=== PATIENT | female | born 1985 | race Caucasian/White ===

== ENCOUNTER 2017-09-21 11:14 | Inpatient (IN) | payer MEDICAID ==
[~2017-09-21] VITALS: Ht 152.4 cm; Wt 43.7 kg
[~2017-09-21 11:14] MED LIST: ABILIFY15 M1 PO; ABILIFY20 M1 PO; ABILIFY5 M1 PO; AMLODIPINE BES2.5 M1 PO; ATENOLOL25 MG PO; BACO TOP; BENZTROPINE MESY2 MG PO; BENZTROPINE PO; CHLORPROMAZINE25 M1 PO; CIPRO250 MG PO; CIPRO500 MG PO; CITRATE OF1.75 GM/30 PO; COL250 PO; DIPHENHYDRAMINE50 M2 PO; DIPHENHYDRAMINE50 MG PO; DOCUSATE; DOK COLACE100 MG PO; ENSURE1 PDR PO; ERY250 PO; EUCERIN ORIGIN250 ML TOP; HALDOL; HALOPERIDOL10 MG PO; HIB240 TP; HIBICLENS118 ML TOP; LAC PO; LORAZEPAM1 MG PO; MEGL PO; MOM PO; MOTRIN800 MG PO; NECON 1/351 TAB PO; POLYETHYLENE GL; POLYETHYLENE GL1 PO1 PO; PROMETHAZINE D118 M1 PO; SEN PO; SEROQUEL XR300 M1 PO; SEROQUEL XR400 M1 PO; SEROQUEL400 M1 PO; STOOL SOFTENER100 MG PO; TEMAZEPAM15 MG PO; THO50 PO; TRAZODONE HYDR100 MG PO; TRAZODONE150 M1 PO; UREA 40% TOP; UREA 40% TP; UREA CREAM; [UNRECOGNIZED DRUG - CODE] TOP; [UNRECOGNIZED DRUG - OTHER]; [UNRECOGNIZED DRUG - OTHER] PO; [UNRECOGNIZED DRUG - OTHER] TOP
[2017-09-21] MEDS ORDERED: CONSTULOSE10 GM/151 PO (12:40)
[2017-09-21] MEDS ORDERED: PRILOSEC OTC20 M1 PO (12:40)
[2017-09-21] MEDS ORDERED: SYNTHROID25 MCG PO (12:40)
[2017-09-21] MEDS ORDERED: OLEPTRO150 MG PO (12:41)
[2017-09-21 12:55] LABS: BASOPHIL % 0.1 % (0-2); PLATELET COUNT 198 x10^3mcL (130-400); RED CELL DISTRIBUTION WIDTH 13.5 % (11.5-14.5)
[2017-09-21 12:58] LABS: CALCIUM 8.3 mg/dL (8.5-10.1); CARBON DIOXIDE 24.3 mmol/L (21-32); CHLORIDE SERUM 109 mmol/L (98-107); CREATININE SERUM 0.5 mg/dL (0.6-1.0); GFR1 > 60 mL/min; GLUCOSE SERUM 121 mg/dL (74-106); POTASSIUM SERUM 4.3 mmol/L (3.5-5.1); SODIUM SERUM 141 mmol/L (136-145)
[2017-09-21 13:04] LABS: ALKALINE PHOSPHATASE 129 U/L (46-116); ALT/SGPT 29 U/L (14-59); AST/SGOT 28 U/L (15-37); BILIRUBIN TOTAL 0.34 mg/dL (0.20-1.00)
[2017-09-21 13:09] LABS: MAGNESIUM 1.9 mg/dL (1.8-2.4); PHOSPHOROUS 2.8 mg/dL (2.5-4.9)
[2017-09-21 13:15] LABS: CHOLESTEROL/HDL RATIO 1.7
[2017-09-21 13:18] LABS: FREE T4 0.94 ng/dL (0.76-1.46); FREE THYROXINE INDEX 2.3 ug/dL (1.4-4.5); T4(THYROXINE) 6.2 ug/dL (4.7-13.3)
[2017-09-21 13:45] VITALS: BP 113/74
[2017-09-21 14:18] LABS: T3 TOTAL 0.65 ng/mL
[2017-09-21 17:30] VITALS: BP 119/83
[2017-09-21 22:00] VITALS: BP 113/68
[2017-09-22 05:06] VITALS: BP 112/67
[2017-09-22 06:27] LABS: BASOPHIL % 0.2 % (0-2); PLATELET COUNT 187 x10^3mcL (130-400); RED CELL DISTRIBUTION WIDTH 13.4 % (11.5-14.5)
[2017-09-22 08:21] LABS: CALCIUM 8.6 mg/dL (8.5-10.1); CARBON DIOXIDE 24.9 mmol/L (21-32); CHLORIDE SERUM 108 mmol/L (98-107); CREATININE SERUM 0.5 mg/dL (0.6-1.0); GFR1 > 60 mL/min; GLUCOSE SERUM 104 mg/dL (74-106); POTASSIUM SERUM 4.2 mmol/L (3.5-5.1); SODIUM SERUM 141 mmol/L (136-145)
[2017-09-22 10:33] VITALS: BP 134/77
[2017-09-22 21:00] VITALS: BP 125/66
[2017-09-23 06:27] VITALS: BP 140/77
[2017-09-23 07:01] LABS: CALCIUM 8.7 mg/dL (8.5-10.1); CARBON DIOXIDE 27.6 mmol/L (21-32); CHLORIDE SERUM 103 mmol/L (98-107); CREATININE SERUM 0.4 mg/dL (0.6-1.0); GFR1 > 60 mL/min; GLUCOSE SERUM 94 mg/dL (74-106); POTASSIUM SERUM 3.4 mmol/L (3.5-5.1); SODIUM SERUM 129 mmol/L (136-145)
[2017-09-23 07:08] LABS: BASOPHIL % 0.3 % (0-2); PLATELET COUNT 189 x10^3mcL (130-400); RED CELL DISTRIBUTION WIDTH 13.6 % (11.5-14.5)
[2017-09-23 19:03] VITALS: Ht 152.4 cm; Wt 43.7 kg
[2017-09-23 19:19] VITALS: BP 136/94
[2017-09-23 21:00] VITALS: BP 138/72
[2017-09-24 05:49] VITALS: BP 142/80
[2017-09-24 06:24] LABS: CALCIUM 8.8 mg/dL (8.5-10.1); CARBON DIOXIDE 24.8 mmol/L (21-32); CHLORIDE SERUM 108 mmol/L (98-107); CREATININE SERUM 0.5 mg/dL (0.6-1.0); GFR1 > 60 mL/min; GLUCOSE SERUM 111 mg/dL (74-106); SODIUM SERUM 144 mmol/L (136-145)
[2017-09-24 06:55] LABS: BASOPHIL % 0.3 % (0-2); PLATELET COUNT 217 x10^3mcL (130-400); RED CELL DISTRIBUTION WIDTH 13.5 % (11.5-14.5)
[2017-09-24 08:30] VITALS: BP 135/82
[2017-09-24] MEDS ORDERED: NORCO1 TA2 PO (09:44)
[2017-09-24] MEDS ORDERED: CITRATE OF1.75 GM/30 PO (09:44)
[2017-09-24 15:06] VITALS: BP 133/77
== END 2017-09-24 15:30 | DRG 342 ==
LOC: ED 11:14 → DU 12:29 → MU 12:29 → DU 13:17 → MU 09-23 09:21
PROVIDERS: Emergency Medicine; Family Medicine
DX: S42.292A Other displaced fracture of upper end of left humerus, initial encounter for closed fracture (principal); F73 Profound intellectual disabilities; E87.8 Other disorders of electrolyte and fluid balance, not elsewhere classified; E44.0 Moderate protein-calorie malnutrition; K59.00 Constipation, unspecified; F84.0 Autistic disorder; G80.9 Cerebral palsy, unspecified; E03.9 Hypothyroidism, unspecified; Z68.1 Body mass index [BMI] 19.9 or less, adult; W08.XXXA Fall from other furniture, initial encounter; Y92.048 Other place in boarding-house as the place of occurrence of the external cause
CPT/HCPCS: 83880; 84439; J1885; J2060; J3010; Q0092; Q0161

== ENCOUNTER 2017-11-30 21:20 | Emergency (ER) | payer MEDICAID ==
[~2017-11-30] VITALS: Ht 147.3 cm; Wt 40.0 kg
[~2017-11-30 21:20] MED LIST changes: +CONSTULOSE10 GM/151 PO; +NORCO1 TA2 PO; +OLEPTRO150 MG PO; +PRILOSEC OTC20 M1 PO; +SYNTHROID25 MCG PO
[2017-11-30 21:34] VITALS: BP 116/101; Ht 147.3 cm; Wt 40.0 kg
== END 2017-12-01 00:10 | disposition home or self-care (01) ==
LOC: ED 21:20
DX: S00.31XA Abrasion of nose, initial encounter (principal); F84.0 Autistic disorder; F79 Unspecified intellectual disabilities; G89.18 Other acute postprocedural pain; M25.512 Pain in left shoulder; W01.198A Fall on same level from slipping, tripping and stumbling with subsequent striking against other object, initial encounter; Y93.89 Activity, other specified; Y99.8 Other external cause status; Y92.89 Other specified places as the place of occurrence of the external cause
CPT/HCPCS: Q0092

== ENCOUNTER 2018-04-07 21:40 | Emergency (ER) | payer MEDICAID ==
[~2018-04-07] VITALS: Ht 152.4 cm; Wt 49.9 kg
[2018-04-08 03:58] VITALS: BP 136/97
== END 2018-04-08 03:40 | disposition home or self-care (01) ==
LOC: ED 21:40
DX: S01.112A Laceration without foreign body of left eyelid and periocular area, initial encounter (principal); S09.90XA Unspecified injury of head, initial encounter; W07.XXXA Fall from chair, initial encounter; Y93.89 Activity, other specified; Y92.89 Other specified places as the place of occurrence of the external cause; Y99.8 Other external cause status
CPT/HCPCS: J2001; J2060; J3490

== ENCOUNTER 2018-08-22 10:16 | Emergency (ER) | payer MEDICAID ==
[~2018-08-22] VITALS: Ht 160 cm; Wt 36.7 kg
[2018-08-22 10:30] VITALS: Ht 160 cm; Wt 36.7 kg
[2018-08-22 12:51] VITALS: BP 144/81
== END 2018-08-22 13:10 | disposition home or self-care (01) ==
LOC: ED 10:16
DX: S00.11XA Contusion of right eyelid and periocular area, initial encounter (principal); S00.33XA Contusion of nose, initial encounter; S00.03XA Contusion of scalp, initial encounter; F84.0 Autistic disorder; W06.XXXA Fall from bed, initial encounter; Y93.9 Activity, unspecified; Y92.89 Other specified places as the place of occurrence of the external cause; Y99.8 Other external cause status
CPT/HCPCS: G0500; J3490

== ENCOUNTER 2019-02-21 11:33 | Emergency (ER) | payer BC ==
[~2019-02-21] VITALS: Ht 152.4 cm; Wt 36.7 kg
[2019-02-21 11:42] VITALS: Ht 152.4 cm; Wt 36.7 kg
[2019-02-21 12:25] LABS: BASOPHIL % 0.3 % (0-2); PLATELET COUNT 275 x10^3mcL (130-400); RED CELL DISTRIBUTION WIDTH 13.8 % (11.5-14.5)
[2019-02-21 12:36] LABS: CALCIUM 9.3 mg/dL (8.5-10.1); CARBON DIOXIDE 28.2 mmol/L (21-32); CHLORIDE SERUM 105 mmol/L (98-107); CREATININE SERUM 0.6 mg/dL (0.6-1.0); GFR1 > 60 mL/min; GLUCOSE SERUM 101 mg/dL (74-106); POTASSIUM SERUM 3.9 mmol/L (3.5-5.1); SODIUM SERUM 139 mmol/L (136-145)
[2019-02-21 12:41] LABS: ALKALINE PHOSPHATASE 117 U/L (46-116); ALT/SGPT 31 U/L (14-59); AST/SGOT 19 U/L (15-37); BILIRUBIN TOTAL 0.26 mg/dL (0.20-1.00); TOTAL PROTEIN, SERUM 6.2 g/dL (6.4-8.2)
[2019-02-21 12:56] LABS: ALBUMIN 2.7 g/dL (3.4-5.0)
[2019-02-21 13:15] LABS: microscopic required? NO
[2019-02-21 13:21] LABS: UA SPECIFIC GRAVITY 1.015 (1.005-1.035); urine erythrocyte NEGATIVE (NEGATIVE)
[2019-02-21 14:13] VITALS: BP 120/81
== END 2019-02-21 14:29 | disposition home or self-care (01) ==
LOC: ED 11:33
PROVIDERS: Emergency Medicine
DX: E86.0 Dehydration (principal); R53.1 Weakness; F84.0 Autistic disorder; Z79.899 Other long term (current) drug therapy
CPT/HCPCS: J7030; Q0092

== ENCOUNTER 2019-03-13 19:11 | Emergency (ER) | payer BC ==
[~2019-03-13] VITALS: Ht 154.9 cm; Wt 40.4 kg
[2019-03-13 19:50] VITALS: Ht 154.9 cm; Wt 40.4 kg
[2019-03-13 21:43] VITALS: BP 125/89
== END 2019-03-13 21:43 | disposition home or self-care (01) ==
LOC: ED 19:11
DX: S01.81XA Laceration without foreign body of other part of head, initial encounter (principal); F79 Unspecified intellectual disabilities; F84.0 Autistic disorder; R45.1 Restlessness and agitation; W18.39XA Other fall on same level, initial encounter; Y93.89 Activity, other specified; Y92.89 Other specified places as the place of occurrence of the external cause; Y99.8 Other external cause status
CPT/HCPCS: J2001

== ENCOUNTER 2019-05-11 09:41 | Inpatient (IN) | payer BC ==
[~2019-05-11] VITALS: Ht 152.4 cm; Wt 34.9 kg
[2019-05-11 10:15] VITALS: Ht 152.4 cm; Wt 34.9 kg
--- NOTE | 2019-05-11 10:46 | NUR ---
PT BIB [facility] S/P HITTING HEAD ON WALL AND SUSTAINING A LAC TO L FRONTAL LOBE. PER [facility] PT DID NOT SUSTAIN LOC. PT HAS HX OF AUTISM AND MR AND IS THRASHING AROUND AND SCREAMING. PER [facility] THIS IS PT NORMAL BEHAVIOR ESPECIALLY AT HOSPITAL. PER [facility] PT NORMALLY THRASHES AROUND AND IT IS NORMAL THAT SHE HITS HER HEAD. PT NOTED WITH A FEVER AT TRIAGE AND PER [facility] PT HAS NOT BEEN SICK LATELY. BREATHING EVEN AND UNLABORED. PT NOTED TO BE WEARING ADULT DIAPERS WELL. WILL CONTINUE TO MONITOR.
--- NOTE | 2019-05-11 10:50 | NUR ---
PT PLACED IN 4 POINT RESTRINTS DUE TO THRASHING AROUND AND PER [facility] PT WILL CONTINUE TO BANG HEAD AND TRHASH ARUND AND HARM SELF WITHOUT RESTRAINTS
[2019-05-11 12:07] LABS: microscopic required? NO
[2019-05-11 12:23] LABS: UA SPECIFIC GRAVITY 1.025 (1.005-1.035); urine erythrocyte NEGATIVE (NEGATIVE)
[2019-05-11 12:54] LABS: BASOPHIL % 0.1 % (0-2); PLATELET COUNT 199 x10^3mcL (130-400); RED CELL DISTRIBUTION WIDTH 14.1 % (11.5-14.5)
--- NOTE | 2019-05-11 13:10 | NUR ---
PT CONTINUES TO THRASH AROUND ON GURERASTO, 4 POINT RESTRAINTS STILL AAPPPLIED. [facility] AT BEDSIDE
--- NOTE | 2019-05-11 13:12 | NUR ---
REPORT GIVEN TO KRYSTEN DENG FOR FURTHER CARE OF PT
[2019-05-11 13:23] LABS: CALCIUM 7.5 mg/dL (8.5-10.1); CARBON DIOXIDE 23.2 mmol/L (21-32); CHLORIDE SERUM 113 mmol/L (98-107); CREATININE SERUM 0.8 mg/dL (0.6-1.0); GFR1 > 60 mL/min; GLUCOSE SERUM 78 mg/dL (74-106); POTASSIUM SERUM 3.5 mmol/L (3.5-5.1); SODIUM SERUM 148 mmol/L (136-145)
[2019-05-11 13:28] LABS: ALKALINE PHOSPHATASE 130 U/L (46-116); ALT/SGPT 45 U/L (14-59); AST/SGOT 39 U/L (15-37); BILIRUBIN TOTAL 0.5 mg/dL (0.20-1.00); LIPASE 112 IU/L (73-393); MAGNESIUM 1.6 mg/dL (1.8-2.4); T4(THYROXINE) 6.3 ug/dL (4.7-13.3)
[2019-05-11 13:29] LABS: CHOLESTEROL 114 mg/dL (<200); HDL CHOLESTEROL 72 mg/dL (40-60); TOTAL PROTEIN, SERUM 5.9 g/dL (6.4-8.2)
--- NOTE | 2019-05-11 14:25 | NUR ---
IV ATIVAN AND IM HALDOL GIVEN AGAIN PER DR FOY FOR CONTINUED THRASHING IN BED AND BANGING OF HEAD ON PILLOW. [facility] AT BEDSIDE. [address] FOR PT SAFETY.
[2019-05-11 15:03] LABS: AMPHETAMINE QUAL UR NONE DETECTED (See below)
--- NOTE | 2019-05-11 15:15 | NUR ---
PT CONTINUES TO OCCASIONALLY TRASH AROUND BED WITH BANGING OF HEAD AGAINST PILLOW/MATTRESS AND YELLING. [facility] AT BEDSIDE.
--- NOTE | 2019-05-11 16:09 | NUR ---
PT NOTED TO STILL BE THRASHING/YELLING IN BED.
[2019-05-11] MEDS ORDERED: [UNRECOGNIZED DRUG - OTHER] PO (16:51)
[2019-05-11] MEDS ORDERED: UREA20% TOP (16:52)
[2019-05-11] MEDS ORDERED: GERI HYDROLAC TOP (16:54)
--- NOTE | 2019-05-11 17:00 | NUR ---
REMOVED JOSE EDUARDO LEG RESTRAINTS. PT REPOSITIONED TO TOP OF BED FOR BETTER COMFORT. PT CONTINUING TO TRASH AROUND/KICK/YELL. [facility] AT BEDSIDE.
--- NOTE | 2019-05-11 18:10 | NUR ---
PT LYING IN BED WITH OCCASIONAL KICKING/THRASHING. [facility] AT BEDSIDE.
[2019-05-11 19:23] LABS: CHOLESTEROL/HDL RATIO 1.6
--- NOTE | 2019-05-11 19:59 | NUR ---
REPORT GIVEN TO UCHE DENG ON MS FOR FURTHER CARE OF PT
[2019-05-11 21:41] VITALS: BP 131/79
--- NOTE | 2019-05-11 21:50 | NUR ---
PT SHOWING SIGNS OF INCREASED AGITATION. MEDICATED PT WITH PRN ATIVAN. WILL CONTINUE TO MONITOR.
--- NOTE | 2019-05-11 22:12 | NUR ---
RECEIVED PT FROM ER, PT ADMIT FOR PNA, PT IS ALERT BUT NON VERBAL, PT IS VERY AGITATED, CONSTANTLY SCREAMING, TRYING TO THROW HER BODY OFF THE BED. HIT HER HEAD TO BED FRAME. SCRATCH ALL STAFFS NEAR HER. KICKING. PT IS CURRENTLY ON JOSE EDUARDO WRIST RESTRAIN. UNABLE TO AUSCULTATE LUNG SOUND BECAUSE PT CONSTANTLY SCREAMING. PO2 95% IN ROOM AIR, PT IS ON TELE 5, ST, BOWEL SOUND PRESENT ALL 4 QUADRANTS, NO DISTENTION, NO TENDER. PEDAL PULSE PRESENT BOTH FEET, NO EDEMA, IV AT LEFT AC, NO LEAKING, NO INFITLRAITON. ALL ADLS ASSIST, SITTER AT BEDSIDE. ALL ADLS ASSIST, ALL NEED MET, CALL LIGHT IN REACH, WILL CONTINUE TO MONITOR.
--- NOTE | 2019-05-11 22:30 | NUR ---
PT RECIEVED FROM GAYLE RN, PT ALERT AND NONVERBAL. NO S/S OF PAIN NOTED AT THIS TIME. PT EXTREMELY AGITATED AT THIS TIME. THRASHING AROUND AT THIS TIME. JOSE EDUARDO WRISTS AND L ANKLE RESTRAINED AT THIS TIME. PT KICKING AND SCREAMING. ATTEMPTING TO BITE NURSES NEAR. REORIENTED AND ATTEMPTED TO DISTRACT. PT CONTINUED TO REMAIN AGITATED. SZ PRECAUTIONS IN PLACE AT THIS TIME. PT 1:1, SITTER AT BEDSIDE. BED AT LOWEST POSITION. SIDE RAILS X4 IN PLACE. WILL CONTINUE TO MONITOR.
--- NOTE | 2019-05-11 23:20 | NUR ---
UNABLE TO PERFORM EKG DUE TO PT MOVING AND KICKING. SITTER AT BEDSIDE.
--- NOTE | 2019-05-12 01:53 | NUR ---
PT INCREASINGLY AGITATED. PT MEDICATED WTIH PRN ATIVAN, WILL CONTINUE TO MONITOR.
[2019-05-12 05:37] VITALS: BP 131/86
--- NOTE | 2019-05-12 06:26 | NUR ---
PT STILL AGITATED IN BED AT THIS TIME. CONTINING TO THRASH AND KICK. COMFORT MEASURES PROVIDED, NO POSITIVE RESPONSE ACHIEVED. PT IN THREE POINT RESTRAINTS AT THIS TIME. SITTER AT BEDSIDE. BED AT LOWEST POSITION, SZ PRECAUTIONS IN PLACE. WILL ENDORSE TO DAY NURSE.
[2019-05-12 06:47] LABS: CALCIUM 7.3 mg/dL (8.5-10.1); CARBON DIOXIDE 24.1 mmol/L (21-32); CHLORIDE SERUM 115 mmol/L (98-107); CREATININE SERUM 0.7 mg/dL (0.6-1.0); GFR1 > 60 mL/min; GLUCOSE SERUM 132 mg/dL (74-106); SODIUM SERUM 150 mmol/L (136-145)
[2019-05-12 07:15] LABS: BASOPHIL % 0.1 % (0-2); PLATELET COUNT 188 x10^3mcL (130-400)
--- NOTE | 2019-05-12 07:45 | NUR ---
RECEIVED PT IN BED AWAKE, NONVERBAL. PT UNABLE TO FOLLOW DIRRECTIONS OR VERBALIZE NEEDS. SCREAMS WHEN TOUCHED OR SPOKEN TO. PT HAS BEEN AGITATED AND COMBATIVE TRASHING AROUND IN BED. KICKING STAFF, SCRATCHING AND ATTEMPTING TO BITE STAFF. PT HAS ALSO ATTEMPTED AT LINES AND BANGING HEAD ON BED. RECEIVED PT IN 3 POINT RESTRAINTS. SOFT TO LT ANCKLE AND VALCRO TO BILAT WRIST. WAS MADE AWARE THAT PT HAS BEEN RIPPING THROUGH SOFT WRIST RESTRAINTS. RESP EVEN AND UNLABORED ON RA. UNABLE TO AUSCULTATE D/T MOVEMENT AND SCREAMING. ON TELE #[address] HR 100-110. NO EDEMA NOTED WITH IV TO LFA INFUSING NS AT 100ML/HR. ABD SOFT, NONTENDER WITH ACTIVE BS X4. PT INCONTINENT OF B+B. ABLE TO MOVE ALL EXTREMETIES BUT UNABLE TO EVALUATE AMBULATION AT THIS TIME. PT NOTED WITH ECCHYMOSIS TO BLE FROM BANGING LEG ON BED RAILS WHILE TRYING TO KICK STAFF. PT WITH PADDED RAILS X4 WITH 4 RAILS UP PER RESTRAINT ORDERS. SITTER AT BEDSIDE. CALL LIGHT IN REACH NEEDS ANTICIPATED.
[2019-05-12 08:20] VITALS: BP 127/86
--- NOTE | 2019-05-12 10:44 | NUR ---
RESIDENT MADE AWARE VIA [facility]ATE OF NA 150 TRENSDING UP PT CURRENTLY ON NS. INQUIRED IF SHE WOULD LIKE TO CHANGE IVF. AWAITING FURTHER ORDERS.
[2019-05-12 12:15] VITALS: BP 126/87
--- NOTE | 2019-05-12 12:15 | NUR ---
PT NOTED WITH LESS AGITATION. RANDOMLY SCREAMING. WHEN TOUCHED ATTEMPTS TO SCRATCH, BITE OR KICK STAFF. SITTER AT BEDSIDE FOR SAFETY. PT NOTED WITH SLIGHT IMPROVEMENT FROM THIS MORNING WHEN EPISODES WHERE CONSTANT. NOW THEY ARE OCCURING LESS FREQUETLY. NO NEED FOR PRN MEDS AT THIS TIME. CALL LIGHT IN REACH NEEDS ANTICIPATED.
--- NOTE | 2019-05-12 14:50 | NUR ---
AWAITING FOR PHARMACY TO DELIVER K-RIDER. PT RESTING WITH EYES CLOSED AT THIS TIME. COMFORTABLE IN NO APPARENT DISTRESS. CALLS OUT OCC. CALL LIGHT IN REACH. SITTER AT BEDSIDE.
[2019-05-12 16:30] VITALS: BP 116/82
--- NOTE | 2019-05-12 18:15 | NUR ---
PT RESTING AT THIS TIME. HAS BEEN SLEEPING ON AND OFF FOR PAST 3 HRS, HAD BEEN COMBATIVE AND AGITATED ALL SHIFT, ATTEMPTING TO SCRATCH, BITE AND KICK STAFF. ATTEMPTS TO PULL ON LINES AND BANG HEAD ON BED. CONSTANTLY MOVING IN BED AND AGITATED. REMAINS ON VALCRO RESTRAINTS TO BUE AND SOFT TO LT ANCKLE WITH BED RAILS UP X4 FOR SAFETY. SITTER AT BEDSIDE FOR SAFETY. IVF INFUSING TO LFA. CALL LIGHT IN REACH NEEDS ANTICIPATED.
--- NOTE | 2019-05-12 19:59 | NUR ---
PT. SLEEPING, EASY TO WAKE. RESPONDS TO TACTILE STIMULI. PT. W/ HX OF AUTISM AND MR. PT. ALSO APHASIC. PT. ON SEIZURE PRECAUTION W/ SIDERAILS PADDED FOR PT. SAFETY. THREE POINT RESTRAINTS STILL IN PLACE, BUE AND LLE. PT. NEEDS ANTICIPATED. SITTER AT BEDSIDE. BREATH SOUNDS CLEAR THROUGHOUT LUNG KRAMER, RESP. EVEN, UNLABORED. BLL DIMINISHED. PT. ON RA. NO SOB NOTED. NSR ON TELE #5, NO ECTOPIES NOTED. PEDAL PULSES STRONG TO BLE. NO EDEMA NOTED. SMALL LACERATION W/ EUGENE ENTRY LEVEL ADMINISTRATIVE ASSISTANT, TO LT. FOREHEAD. NO DRAINAGE NOTED. NO S/S OF INFECTION. SCATTERED ECCYMOSIS TO BUE AND BLE. ABD. SOFT AND FLAT, BOWEL SOUNDS ACTIVE. IVF D5W INFUSING AT THIS TIME. PT. NEEDS ANTICIPATED.
--- NOTE | 2019-05-13 00:31 | NUR ---
PT. AWAKE, THRASHING AROUND IN BED AT TIMES. PT. REMAINS WITH THREE POINT RESTRAINTS IN PLACE. RELEASED PER PROTOCOL. WHEN RESTRAINTS ARE RELEASED, PT. ATTEMPTS TO KICK, HIT AND PINCHING STAFF. HYDRATION AND TOILETING DONE Q2HRS AND PRN. SITTER REMAINS AT BEDSIDE. IV SITE INTACT. WILL CONTINUE TO MONITOR.
[2019-05-13 05:51] VITALS: BP 123/85
--- NOTE | 2019-05-13 06:22 | NUR ---
SITTER REMAINS AT BEDSIDE. BUE VELCRO RESTRAINTS IN-SITU, LLE RESTRAINTS IN PLACE. IVF INFUSING WELL, SITE REMAINS INTACT. NO SEIZURE ACTIVITES NOTED THROUGHOUT NIGHT. WILL ENDORSE PT. CARE TO INCOMING NURSE.
--- NOTE | 2019-05-13 07:10 | NUR ---
RECEIVED PT IN BED AWAKE, NONVERBAL. PT UNABLE TO FOLLOW DIRRECTIONS OR VERBALIZE NEEDS. SCREAMS INTERMITTENTLY. NIGHT NURSE REPORTS PT HAS BEEN AGITATED AND COMBATIVE IN BED AND THAT SHE HAS ALSO ATTEMPTED AT LINES AND BANGING HEAD ON BED. RECEIVED PT IN 3 POINT RESTRAINTS. SOFT TO LT ANCKLE AND VALCRO TO BILAT WRIST. RR EVEN AND UNLABORED ON RA. UNABLE TO AUSCULTATE D/T MOVEMENT AND SCREAMING. PT ON TELE #[address] HR 92. NO EDEMA NOTED WITH IV TO LFA INFUSING D5-45%NS AT 100ML/HR. ABD SOFT, NONTENDER WITH ACTIVE BS X4. PT INCONTINENT OF B+B. ABLE TO MOVE ALL EXTREMETIES BUT UNABLE TO EVALUATE AMBULATION AT THIS TIME. PT NOTED WITH ECCHYMOSIS TO BLE FROM BANGING LEG ON BED RAILS. SITTER AT BEDSIDE ALL SHIFT. SAFETY PRECAUTIONS IN PLACE, CALL LIGHT WITHIN REACH, WILL MONITOR. KICK STAFF. PT WITH PADDED RAILS X4 WITH 4 RAILS UP PER RESTRAINT ORDERS. SITTER AT BEDSIDE. CALL LIGHT IN REACH NEEDS ANTICIPATED.
[2019-05-13 07:34] LABS: BASOPHIL % 0.3 % (0-2); PLATELET COUNT 192 x10^3mcL (130-400); RED CELL DISTRIBUTION WIDTH 14.1 % (11.5-14.5)
[2019-05-13 07:46] LABS: CALCIUM 7.4 mg/dL (8.5-10.1); CARBON DIOXIDE 27.3 mmol/L (21-32); CHLORIDE SERUM 111 mmol/L (98-107); CREATININE SERUM 0.4 mg/dL (0.6-1.0); GFR1 > 60 mL/min; GLUCOSE SERUM 92 mg/dL (74-106); MAGNESIUM 1.6 mg/dL (1.8-2.4); PHOSPHOROUS 1.8 mg/dL (2.5-4.9); SODIUM SERUM 145 mmol/L (136-145)
[2019-05-13 08:01] LABS: POTASSIUM SERUM 2.4 mmol/L (3.5-5.1)
--- NOTE | 2019-05-13 10:00 | NUR ---
PT STABLE IN BED AT THIS TIME. SITTER AT BEDSIDE. NO DISTRESS NOTED. SAFETY PREACUTIONS IN PLACE, CALL LIGHT WITHIN REACH, WILL CONTINUE TO MONITOR.
--- NOTE | 2019-05-13 10:50 | NUR ---
PT POTASSIUM LEVEL AT 2.4. JOSSELINE CAMPBELL NOTIFIED AND ORDERED POTASSIUM COVERAGE. WILL CARRY OUT NEW ORDERS.
[2019-05-13 12:59] VITALS: BP 146/96
--- NOTE | 2019-05-13 14:54 | NUR ---
PT STABLE IN BED AT THIS TIME. TOLERATING ALL CARES WELL. SITTER AT BEDSIDE. NO DISTRESS NOTED. SAFETY PREACUTIONS IN PLACE, CALL LIGHT WITHIN REACH, WILL CONTINUE TO MONITOR.
--- NOTE | 2019-05-13 16:47 | NUR ---
ATIVAN GIVEN PER EMAR FOR AGFGITATION, WILL REASSESS.
[2019-05-13 17:12] VITALS: BP 146/96
[2019-05-13 17:30] VITALS: BP 145/89
--- NOTE | 2019-05-13 18:15 | NUR ---
PT STABLE WITH NO DISTRESS NOTED. SITTER REMAINS AT BEDSIDE. BUE SOFT VELCRO RESTRAINTS IN-SITU, LLE RESTRAINT IN PLACE. IVF INFUSING WELL, SITE REMAINS INTACT/PATENT. NO SEIZURE ACTIVITES NOTED THROUGHOUT DAY. WILL ENDORSE PT. CARE TO INCOMING NURSE.
--- NOTE | 2019-05-13 19:40 | NUR ---
PT. SLEEPING AT THIS TIME. RESPONDS TO TACTILE STIMULI. PT. ON THREE POINT RESTRAINTS. BREATH SOUNDS CLEAR THROUGHOUT LUNG KRAMER, RESP. EVEN, UNLABORED. BLL DIMINISHED. NO SOB NOTED. PT. ON ROOMAIR. SCATTERED ECCYMOSIS TO BUE AND BLE. LACERATION TO LT. FOREHEAD HAIRLINE UNIVERSITY EXTENSION SPECIALIST, NO DRAINAGE, NO S/S OF INFECTION. IV SITE INTACT. NO EDEMA NOTED TO EXTREMITIES. PEDAL PULSES STRONG BLE. ABD. SOFT AND FLAT. BOWEL SOUNDS ACTIVE. SITTER AT BEDSIDE. PT. IN FULL VIEW OF PT.'S ROOM.
[2019-05-13 21:00] VITALS: BP 148/98
--- NOTE | 2019-05-14 01:40 | NUR ---
SITTER REMAINS AT BEDSIDE. PT. MOSTLY QUIET AT THIS TIME. RESTRAINTS TO BUE AND LLE IN-SITU. RELEASED PER PROTOCL THROUGHOUT THE NIGHT. WILL CONTINUE TO MONITOR.
[2019-05-14 04:54] VITALS: BP 146/98
--- NOTE | 2019-05-14 06:28 | NUR ---
DR. MOON MADE AWARE OF PT.'S MRSA RESULTS, ORDERS FOR PROTOCOL NOW PENDING. ALSO MADE AWARE OF NEEDED REPEAT CXR. ORDERS PLACED ACCORDINGLY.
[2019-05-14 06:37] LABS: BASOPHIL % 0.5 % (0-2); PLATELET COUNT 179 x10^3mcL (130-400); RED CELL DISTRIBUTION WIDTH 14.4 % (11.5-14.5)
[2019-05-14 06:39] LABS: CALCIUM 8.4 mg/dL (8.5-10.1); CHLORIDE SERUM 109 mmol/L (98-107); CREATININE SERUM 0.4 mg/dL (0.6-1.0); GFR1 > 60 mL/min; GLUCOSE SERUM 97 mg/dL (74-106); MAGNESIUM 1.3 mg/dL (1.8-2.4); POTASSIUM SERUM 3.3 mmol/L (3.5-5.1); SODIUM SERUM 147 mmol/L (136-145)
--- NOTE | 2019-05-14 07:40 | NUR ---
RECEIVED PT IN NO ACUTE DISTRESS. CONTACT ISOLATION. AWAKE, RESPONDS TO TACTILE STIMULI. SPORADICALLY SCREAMS. ON SEIZURE PRECAUTIONS. RESP EVEN AND UNLABORED ON RA. LACERATION WITH EUGENE TO L FOREHEAD HAIRLINE, SOLAR THERMAL TECHNICIAN, NO DRAINAGE. SCATTERED ECCHYMOSIS BUE/BLE, JOSE LUIS. ON 3 POINT RESTRAINTS. SITTER AT BEDSIDE. FALL AND ASPIRATION PRECAUTIONS IN PLACE. IVF INFUSING TO LFA, NO REDNESS OR SWELLING. BED IN LOW POSITION, CALL LIGHT WITHIN REACH. WILL CONTINUE TO MONITOR.
[2019-05-14 09:56] VITALS: BP 116/79
--- NOTE | 2019-05-14 10:17 | NUR ---
PT GIVEN BEDBATH BY KARLEY MAE AND TIANNA HAY. PT TOLERATED WELL. SLEEPING AT THIS TIME BUT EASILY AROUSABLE. BREATHING EVEN AND UNLABORED ON RA. SITTER AT BEDSIDE. WILL CONTINUE TO MONITOR.
--- NOTE | 2019-05-14 12:25 | NUR ---
1. Recommend continuing mechanically soft- chopped diet. 2. Recommend Ensure Enlive BID. This will provide additional 700 kcal and 40g protein. Discussed recommendation with JOSSELINE Laguerre.
--- NOTE | 2019-05-14 12:25 | NUR ---
Initial Nutrition Assessment: 246T/B KYLAH APONTE IA HR Dx: Head injury, PNA PMHx: Autism, Profound Mental Retardation, Seizures and Cerebral Palsy PSHx: none Labs: NA 147H, K 3.3L, BUN 3.0L, CREAT 0.4L, MG 1.3L, HGB 11.6L Meds: Ativan, Cogentin, Colace, NaCl, synthyroid, Zofran, zosyn Diet: mechanically soft-chopped PO Intake: (05/13) dinner 50%, lunch 40%, breakfast 80%, (05/12) dinner 20%, lunch 60% Ht: 152.4 cm (60") Wt: 34.9 kg (77#) BMI: 15 kg/m2 Bed scale: 84.5# IBW: 100# (45 kg) %IBW: 77 UBW: unable to access Age: 34/F Food Allergies: NKFA Skin: scattered ecchymosis to BUE, BLE extremities, lacerations w/ selena to L forehead hairline Lorenzo: 15 Edema: none GI: Last BM: 05/13 Per H&P, Pt is a 34 YO female with PMH of Autism, Profound Mental Retardation, Seizures and Cerebral Palsy who was BIBA from [facility] for head trauma. Per caregiver patient hits her head repeatedly in the bed or wall due to "behavioral problem" but today patient was noted to have head laceration which prompted caregivers to bring her to the ER. RDN Visit (05/14): Patient was sleeping with sitter at bedside. Per sitter, patient ate 95% of her breakfast this morning which comprised of eggs, cream of wheat, juice and Pashto toast. Patient has not had any N/V/D/C at this time. FNS received consult for 'nutrition evaluation' on 05/13. Patient appears severely malnourished. Problem with: N/V/D/C: none at this time per sitter Problems with: Chewing/Swallowing: Patient on MS diet Current appetite: good as pt eating >75% of meals Recent wt change: unable to access %wt change: n/a Vitamin/Supplement use: unable to access Special diet at home: unable to access Physical activity: unable to access Nutrition education given: not possible at this time Food-drug interactions: Colace- high fiber w/8697-1123 ml fluids Education given: n/a Estimated Nutritional Needs Based on current body weight 35 kg Energy: 5065-5018 kcal/d (35-40 kcal/kg) Protein: 42-49 g/d (1.2-1.4 g/kg) - malnutrition Fluid: 5322-9489 ml/d (1 ml/kcal) or per doctor Nutrition Diagnosis 1. Malnutrition related to medical conditions, possible poor PO in the past as evidenced by BMI 15 kg/m2. Intervention 1. Recommend continuing mechanically soft- chopped diet. 2. Recommend Ensure Enlive BID. This will provide additional 700 kcal and 40g protein. Discussed recommendation with [employer] [place]. Monitor/Evaluate Goal: PO intake at least 75% of estimated needs Monitor: PO intake, Labs, GI function F/U in 3-5 days as moderate risk 05/17-
[2019-05-14] MEDS ORDERED: BACO TOP (12:40)
[2019-05-14] MEDS ORDERED: APLICARE ANTIS118 M3 TOP (12:43)
[2019-05-14] MEDS ORDERED: ZITHROMAX TRI-500 MG PO (12:45)
--- NOTE | 2019-05-14 13:32 | NUR ---
PT IN NO ACUTE DISTRESS. SLEEPING BUT AROUSABLE. RESP EVEN AND UNLABORED ON RA. IVF INFUSING, NO REDNESS OR SWELLING NOTED. FALL PRECAUTIONS. SEIZURE PRECAUTIONS. CALL LIGHT WITHIN REACH. SITTER AT BEDSIDE. WILL CONTINUE TO MONITOR.
[2019-05-14 14:03] VITALS: BP 104/62
--- NOTE | 2019-05-14 14:50 | NUR ---
PHYSICAL THERAPY DAILY NOTES CO-SIGN All documentation done by the Clothes Ironer for 05/14/19 has been reviewed. I agree with the documentation. Reviewed/Co-Signed by: Dariela Pierce PT Documentation Done by:TIFFANIE RENTERIA PTA
--- NOTE | 2019-05-14 17:27 | NUR ---
PT DISCHARGED BACK TO [facility] IN NO ACUTE DISTRESS. AWAKE, NON-VERBAL. RESP EVEN AND UNLABORED ON RA. RX GIVEN. DISCHARGE PACKET GIVEN TO [facility]. DISCHARGE EDUCATION PROVIDED, CARE[facility]ERS VERBALIZED UDNERSTANDING. INSTRUCTED [facility]ARE[facility]ERS TO HAVE PT FOLLOW UP WITH PCP WITHIN 2-3 DAYS. IV DC'D WITH CATHETER INTACT. TELE REMOVED. PT CHANGED INTO TRANSFER GOWN AND GIVEN TRANSFER BLANKET. DRESSING TO LFA SKIN TEAR C/D/I. BELONGINGS WITH PT. KARLEY MAE ACCOMPANIED PT TO [facility]. TRANSPORTED VIA WHEELCHAIR.
== END 2019-05-14 17:30 | DRG 720 ==
LOC: ED 09:41 → DU 17:59 → MU 17:59 → DU 05-12 17:39
PROVIDERS: Emergency Medicine; ADMIT Internal Medicine
PROC: 0JQ03ZZ Repair Scalp Subcutaneous Tissue and Fascia, Percutaneous Approach (ICD-10-PCS; principal; 2019-05-11)
DX: A41.9 Sepsis, unspecified organism (principal); J69.0 Pneumonitis due to inhalation of food and vomit; E43 Unspecified severe protein-calorie malnutrition; E87.0 Hyperosmolality and hypernatremia; E83.42 Hypomagnesemia; E83.51 Hypocalcemia; S01.01XA Laceration without foreign body of scalp, initial encounter; D64.9 Anemia, unspecified; F73 Profound intellectual disabilities; G25.9 Extrapyramidal and movement disorder, unspecified; F29 Unspecified psychosis not due to a substance or known physiological condition; G47.00 Insomnia, unspecified; G40.909 Epilepsy, unspecified, not intractable, without status epilepticus; G80.9 Cerebral palsy, unspecified; F84.0 Autistic disorder; E03.9 Hypothyroidism, unspecified; Z68.1 Body mass index [BMI] 19.9 or less, adult; Z22.322 Carrier or suspected carrier of Methicillin resistant Staphylococcus aureus; Y33.XXXA Other specified events, undetermined intent, initial encounter; Y92.048 Other place in boarding-house as the place of occurrence of the external cause
CPT/HCPCS: 82962; 83880; 90715; 97110-GP; 97530-GP; G0378; G0480; J1630; J1956; J2060; J2543; J3370; J3475; J3480; J7030; J7040; J7060; Q0092; Q0161

== ENCOUNTER 2019-10-06 20:38 | Emergency (ER) | payer BC ==
[~2019-10-06] VITALS: Ht 165.1 cm; Wt 40.8 kg
[~2019-10-06 20:38] MED LIST changes: +APLICARE ANTIS118 M3 TOP; +GERI HYDROLAC TOP; +UREA20% TOP; +ZITHROMAX TRI-500 MG PO; +[UNRECOGNIZED DRUG - OTHER] PO
[2019-10-06 20:51] VITALS: Ht 165.1 cm; Wt 40.8 kg
== END 2019-10-06 22:42 | disposition home or self-care (01) ==
LOC: ED 20:38
DX: S01.21XA Laceration without foreign body of nose, initial encounter (principal); W18.09XA Striking against other object with subsequent fall, initial encounter; Y93.89 Activity, other specified; Y92.89 Other specified places as the place of occurrence of the external cause; Y99.8 Other external cause status